=== PATIENT | female | born 1990 | race African-American/Black ===

== ENCOUNTER 2024-02-24 13:59 | Emergency (ER) | payer SELFPAY ==
[2024-02-24 14:01] VITALS: BP 136/101; PULSE 67; RESP 18; TEMP 36.4; O2SAT 100; BMI 18.0
[2024-02-24 14:05] VITALS: BP 129/101; PULSE 64; O2SAT 100
[2024-02-24 14:06] VITALS: BP 136/101; PULSE 81; O2SAT 99
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
--- NOTE | 2024-02-24 14:21 | PC.NURSE ---
Dispatch states that an officer will reach back out to us for more info
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
--- NOTE | 2024-02-24 14:36 | PC.NURSE ---
Steph Pappas CM at bs speaking with pt
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
[2024-02-24 15:21] VITALS: BP 136/101; PULSE 81; RESP 16; TEMP 36.7; O2SAT 99
== END 2024-02-24 15:22 | disposition home or self-care (01) ==
PROVIDERS: Emergency Provider Emergency Medicine
DX: T71.193A Asphyxiation due to mechanical threat to breathing due to other causes, assault, initial encounter (principal); Y09 Assault by unspecified means
CPT/HCPCS: 99282